=== PATIENT | male | born 1990 | race Two or more races ===

== ENCOUNTER 2022-04-03 09:37 | Emergency (ER) | payer OTHER ==
[2022-04-03 09:46] VITALS: BP 136/76; PULSE 101; TEMP 98.7; BMI 30.7
[2022-04-03] MEDS ORDERED: KETOROLAC TROMETHAMINE 30 MG/1 ML VIAL IM ONE (10:57)
[2022-04-03] MEDS ORDERED: KETOROLAC TROMETHAMINE 30 MG/1 ML VIAL ONE (11:34)
[2022-04-03] MEDS ORDERED: ACETAMINOPHEN 500 MG TABLET (FP) ONE (13:45)
== END 2022-04-03 16:16 | disposition home or self-care (01) ==
LOC: JERFT 09:37
PROC: 2W3LX1Z Immobilization of Right Lower Extremity using Splint (ICD-10-PCS; principal; 2022-04-03)
PROC: 3E0233Z Introduction of Anti-inflammatory into Muscle, Percutaneous Approach (ICD-10-PCS; 2022-04-03)
DX: S82.441A Displaced spiral fracture of shaft of right fibula, initial encounter for closed fracture (principal); W10.9XXA Fall (on) (from) unspecified stairs and steps, initial encounter
CPT/HCPCS: 73562-TC-RT-FY; 73590-TC-RT-FY; 73610-TC-RT-FY; 73630-TC-RT-FY; 99285-25

== ENCOUNTER 2022-04-09 05:54 | Emergency (ER) | payer OTHER ==
[2022-04-09 06:41] VITALS: BP 131/85; PULSE 108; RESP 19; TEMP 99.1; BMI 29.9
== END 2022-04-09 10:58 | disposition home or self-care (01) ==
LOC: JER 05:54
PROC: 2W3LX1Z Immobilization of Right Lower Extremity using Splint (ICD-10-PCS; principal; 2022-04-09)
DX: M25.571 Pain in right ankle and joints of right foot (principal)
CPT/HCPCS: 73562-TC-RT-FY; 73590-TC-RT-FY; 73610-TC-RT-FY; 73630-TC-RT-FY; 99285-25

== ENCOUNTER 2022-04-20 00:30 | Emergency (ER) | payer OTHER ==
[2022-04-20 00:53] VITALS: BP 145/81; PULSE 90; RESP 20; TEMP 97.6; BMI 27.3
== END 2022-04-20 03:09 | disposition home or self-care (01) ==
LOC: JER 00:30
DX: S42.401A Unspecified fracture of lower end of right humerus, initial encounter for closed fracture (principal); Y99.9 Unspecified external cause status
CPT/HCPCS: 73590-TC-RT-FY; 73610-TC-RT-FY; 73630-TC-RT-FY; 99284-25